=== PATIENT | female | born 1960 | race Caucasian/White ===

== ENCOUNTER → 2016-05-17 | Outpatient (CLI) | payer OTHER ==
[~2016-05-17] MED LIST: DULO1CAP3 PO; ESTR2TAB PO; GABA600T PO; HYDR1CAP30 PO; IBUP800T23 PO; LOSA100T2 PO; MEDR2.5T2 PO; OXYC-395 PO; TIZA4CAP3 PO; TRAZ50TA12 PO; ZOFR8TAB4 SL
[2016-05-17 11:57] LABS: AUTOMATED NEUTROPHIL # 2.5 TH/MM3 (1.8-7.7); BASOPHIL % 0.7 % (0.0-2.0); EOSINOPHIL # 0.1 TH/MM3 (0-0.4); EOSINOPHIL % 2.2 % (0.0-4.0); HEMATOCRIT 36.5 % (35.0-46.0); HEMO FLAGS DIFF FINAL; LYMPH % 50.5 % (9.0-44.0); LYMPHOCYTE # 3.1 TH/MM3 (1.0-4.8); MEAN CELL VOLUME 85.6 FL (80.0-100.0); MEAN CORPUSCULAR HEMOGLOBIN 30.2 PG (27.0-34.0); MEAN CORPUSCULAR HGB CONC 35.3 % (32.0-36.0); MONO % 5.9 % (0.0-8.0); NEUT % 40.7 % (16.0-70.0); PLATELET COUNT 213 TH/MM3 (150-450); RED BLOOD COUNT 4.26 MIL/MM3 (4.00-5.30); RED CELL DISTRIBUTION WIDTH 13.6 % (11.6-17.2); WHITE BLOOD COUNT 6.1 TH/MM3 (4.0-11.0)
[2016-05-17 12:07] LABS: APTT (PATIENT) 24.7 SEC (24.3-30.1); PROTHROMBIN TIME - PATIENT 10.5 SEC (9.8-11.6)
[2016-05-17 12:29] LABS: BACTERIA, URINE OCC /hpf; BLOOD, URINE TRACE (NEG); GLUCOSE,URINE NEG (NEG); KETONE, URINE NEG (NEG); NITRITE,URINE NEG (NEG); SQUAMOUS EPITHELIAL CELL URINE 1 /hpf (0-5); URINE COLOR YELLOW (YELLW/STRAW)
[2016-05-17 12:30] LABS: COMMENT (UR) CULT NOT INDICATED; CULTURE IF INDICATED CULT NOT INDICATED
[2016-05-17 12:31] LABS: ALT (GPT) 19 U/L (10-53); ANION GAP 6 MEQ/L (5-15); AST (GOT) 9 U/L (15-37); BICARBONATE 27.6 MEQ/L (21.0-32.0); BLOOD UREA NITROGEN 16 MG/DL (7-18); CHLORIDE 105 MEQ/L (98-107); GLOMERULAR FILTRATION RATE 87 ML/MIN (>89); GLUCOSE,FASTING 99 MG/DL (74-99); POTASSIUM 3.5 MEQ/L (3.5-5.1); SODIUM (NA) 139 MEQ/L (136-145)
[2016-05-17 12:33] LABS: ALKALINE PHOSPHATASE 62 U/L (45-117); TOTAL BILIRUBIN ADULT 0.3 MG/DL (0.2-1.0)
--- NOTE | 2016-05-17 12:57 | RADRPT ---
EXAM DATE/TIME: 05/17/2016 11:47 [place] COMPARISON: No previous studies available for comparison. INDICATIONS : Evaluate for pneumonia,pneumothorax, and communicable diseases. Pre-op spinal implant. MEDICAL HISTORY : None. SURGICAL HISTORY : None. ENCOUNTER: Initial ACUITY: 1 day PAIN SCORE: 0/10 LOCATION: chest FINDINGS: PA and lateral views of the chest demonstrate the lungs to be symmetrically aerated without evidence of mass, infiltrate or effusion. The cardiomediastinal contours are unremarkable. Osseous structure s are intact. CONCLUSION: No acute disease. Ricardo Chisholm MD on May 17, 2016 at 12:55 Board Certified Radiologist. This report was verified electronically.
--- NOTE | 2016-05-18 14:15 | EKG ---
Date Performed: 05/17/2016 Time Performed: 11:00:51 PTAGE: 55 years EKG: Sinus rhythm NONSPECIFIC T-WAVE ABNORMALITY BORDERLINE ECG PREVIOUS TRACING : 09/15/2008 07.16 Since previous tracing, no significant change noted DOCTOR: Montrell Cabello Interpretating Date/Time 05/18/2016 14:06:45
== END ==
LOC: CPRE 10:31
PROVIDERS: ATTEND Neurological Surgery
DX: Z01.810 Encounter for preprocedural cardiovascular examination (principal); Z01.812 Encounter for preprocedural laboratory examination; G89.4 Chronic pain syndrome; R94.31 Abnormal electrocardiogram [ECG] [EKG]
CPT/HCPCS: 36415; 71020; 80053; 81001; 85025; 85610; 85730; 93005

== ENCOUNTER → 2016-05-21 | Day surgery (SDC) | payer OTHER ==
[~2016-05-21] VITALS: Ht 160 cm; Wt 77.7 kg
[~2016-05-21] MED LIST changes: +ACETAMINOPHEN 1000 MG/100 ML VIAL IV ONE; +BUPIVACAINE HCL PF 0.5% 30 ML VIAL ONE; +DEXAMETHASONE SOD PHOS 4 MG/ML VIAL ONE; +DO NOT ADM ANY ANTICOAGULANT DRUGS XX PRN; +GELFOAM SIZE 100 ONE; +HYDROmorphone HCL PF 2 MG/ML VIAL ONE; +INSULIN HUMAN REGULAR 1,000 UNITS/10 ML VIAL SQ PRN; +LACTATED RINGER'S 1000 ML INJ 1,000 ML IV ONE; +LACTATED RINGER'S 1000 ML IV SCH; +LIDOCAINE 1%/EPINEPHrine 1:100,000 SOLN 20 ML VIAL ONE; +METOPROLOL TARTRATE 25 MG TAB PO PRN; +MIDAZOLAM HCL 2 MG/2 ML VIAL ONE; +NEOSTIGMINE 3 MG/3 ML SYR IV ONE; +ONDANSETRON HCL 4 MG/2 ML VIAL IV PUSH ONE; +ONDANSETRON HCL 4 MG/2 ML VIAL IV PUSH PRN; +PROPOFOL 200 MG/20 ML AMP IV ONE; +SODIUM CHLORID 0.9% 500 ML IV SCH; +THROMBIN (TOPICAL) 5,000 UNIT VIAL ONE; +ceFAZolin 2 GM PREMIX 50 ML IV SCH; +ceFAZolin 2 GM PREMIX 50 ML ONE; +ePHEDrine/NS 50 MG/5 ML SYR IV ONE; +fentaNYL CITRATE 250 MCG/5 ML AMP ONE
[2016-05-21 10:40] VITALS: BP 119/83; PULSE 67; RESP 18; TEMP 98.7; O2SAT 97
--- NOTE | 2016-05-21 14:22 | RADRPT ---
EXAM DATE/TIME: 05/21/2016 13:30 COMPARISON: FLUOROSCOPY PORTABLE UP TO 1HR, May 21, 2016, 0:00. INDICATIONS : Thoracic spine pain stimulator located at level T8-T9. MEDICAL HISTORY : None. SURGICAL HISTORY : None. ENCOUNTER: Initial ACUITY: 1 day PAIN SCORE: Non-responsive. LOCATION: Thoracic spine. FINDINGS: Single submitted fluoroscopic image demonstrating spinal stimulator overlying the midline spine. [place] cent surgical devices are noted. CONCLUSION: Fluoroscopic support. Thoracic spine pain stimulator identified. Renetta Oden MD on May 21, 2016 at 14:20 Board Certified Radiologist. This report was verified electronically.
[2016-05-21 16:00] VITALS: BP 120/88; PULSE 73; RESP 16; TEMP 97.4; O2SAT 98
--- NOTE | 2016-05-22 22:24 | MP ---
cc: ANGEL RODRIGUEZ MD DATE OF SURGERY 05/21/16 PREOPERATIVE DIAGNOSIS Chronic pain syndrome. POSTOPERATIVE DIAGNOSIS Chronic pain syndrome. PROCEDURE T9-10 laminectomy, implantation of Penta lead at T8-9 lot/serial number [id number] and [employer] internal pulse generator lot /serial number [id number], [id number] from [facility]. ANESTHESIA General. INDICATIONS The patient is a 55-year-old lady who had several lumbar spine surgeries and presented with intractable back and leg pain, especially in the left S1 distribution. She was taken to the operating room after successful trial was greater than 50% decrease in her pain with burst stimulation with her pain doctor, Dr. Jones. SURGEON Rafy Rodriguez MD [employer]CH[employer] The patient was brought to the operating room, placed supine on the OR cart. Anesthesia was induced and the patient intubated orally. He was then turned prone onto a Ld frame. He was then turned prone onto a Ld frame. The lower back was prepped with Betadine and then allowed to dry and prepped with DuraPrep and allowed to dry. The battery incision was planned at the mid axillary line on the left side because the patient is left-handed. It was prepped as well with the same agents. The incision were infiltrated with 1% lidocaine with epinephrine in a one-to-one mixture with 0.5% Marcaine. The incision was first made over the battery. It measured approximately 5 cm. Incision was made with a 15 blade and carried into the subcutaneous fat with the monopolar cautery. A pocket of approximately 5 cm square was placed approximately a centimeter below the surface but above the fascia. Hemostasis was obtained. The back incision was then planned at T 9-10. It was based on fluoroscopic localization of the level. The incision was made with a 15 blade and a subperiosteal dissection was carried out after opening of the dorsal fascia in the midline exposing the laminae of T9 and the rostral aspect of T10. The microscope was then brought into the field. Under the microscope a laminectomy was carried out at T9-10. It was advanced rostrally because of scar tissue. The epidural veins and scar was coagulated and the dura was clearly freed at T9. The lead was then advanced easily under part of T8 and was left at T8-9. It was secured in place with fibrin glue. A release loop was left in the muscle layer which was then reapproximated with Vicryl sutures as well as the fascia with 2-0 Vicryl sutures. The leads were tunneled to the battery pocket and impedances were checked. They were all between 200 and 400 ohms. The PG pocket was closed at the dermis with 2-0 Vicryl sutures and at the skin with 4-0 subcuticular Monocryl suture followed by Dermabond. The back wound was closed with 2-0 Vicryl at the muscle and fascial layer and 2-0 Vicryl at the dermal layer followed by 4-0 Monocryl at the skin. The skin edges were then further reapproximated with Steri-Strips. Primapore dressings were applied sterilely. The patient was then awakened in the supine position and brought back to recovery room in a stable condition. ESTIMATED BLOOD LOSS Estimated at 60 mL. Angel Rodriguez MD YYG/ /2:23 PM /10:10 PM RICHIE
== END | disposition home or self-care (01) ==
LOC: HSDC 09:36
PROVIDERS: ATTEND Neurological Surgery
DX: G89.4 Chronic pain syndrome (principal); M54.16 Radiculopathy, lumbar region
CPT/HCPCS: 00300; 00620; 63655; 63685; 72020; 76000; 86850; 86900; 86901; C1767; C1778; J0131; J0690; J1100; J1170; J2250; J2405; J2710; J3010; J7120